=== PATIENT | male | born 1960 | race Caucasian/White ===

== ENCOUNTER → 2017-03-14 | Outpatient (CLI) | payer OTHER ==
[2015-12-02 12:20] VITALS: BP 151/73
[~2017-03-14] MED LIST: ASCO10002 PO; ASPI-482 PO; ASPI-630 PO; CHOL10003 PO; CITA40TA5 PO; CLON2TAB2 PO; DOCU-109 PO; GABA800T2 PO; GLUC1TAB PO; LISD70CA5 PO; MORP30TA PO; MULT-404 PO; OMEG1CAP38 PO; ONDA4VIA4 IV; OXYC1TAB7 PO; OXYC1TAB8 PO; POTA500T5 PO; SAW450CA2 PO; SENN17.2 PO; SENN25TA8 PO; TAMS0.4C2 PO; TOPI200T6 PO; TRAZ100T12 PO
--- NOTE | 2017-03-14 15:00 | KCIC ---
EXAM: Chest, 2 views. HISTORY: Shortness of breath. COMPARISON: None. FINDINGS: Frontal and lateral views of the chest are obtained. There is right infrahilar atelectasis or infiltrate. There is no consolidation, effusion or pneumothorax. The heart is normal in size. IMPRESSION: Right infrahilar atelectasis or infiltrate. Electronically signed by: Kimberlee Varma MD (03/14/2017 2:57 PM) [facility]-[id number]
== END | disposition home or self-care (01) ==
LOC: KCIC 14:29
PROVIDERS: ATTEND Internal Medicine Critical Care Medicine
DX: R06.02 Shortness of breath (principal)
CPT/HCPCS: 71020

== ENCOUNTER → 2017-03-16 | Outpatient (CLI) | payer OTHER ==
[2015-12-02 12:20] VITALS: BP 151/73
--- NOTE | 2017-03-16 13:38 | KCIC ---
PQRS Compliance Statement: One or more of the following individualized dose reduction techniques were utilized for this examination: 1. Automated exposure control 2. Adjustment of the mA and/or kV according to patient size 3. Use of iterative reconstruction technique CT CHEST WO CONTRAST Clinical Indication: Lung nodule. Abnormal chest radiograph. Comparison: Two-view chest, 2 days ago. Technique: Helical CT imaging of the chest is performed without IV contrast. Findings: Suspect bilateral hilar adenopathy, limited evaluation without IV contrast. There is mediastinal adenopathy. For example there is a 2 x 3 cm subcarinal lymph node. There are 1.3 and 1.4 cm right paratracheal lymph nodes. The great vessels are normal caliber. Mild coronary artery disease. Cardiac size normal, trace pericardial fluid. Cannot exclude wall thickening of the distal esophagus. The central airways are patent. There is minimal atelectasis or scarring in the medial right lower lobe. There is no consolidation. Tiny nodule along the left major fissure in the left lower lobe may be an intrapulmonary lymph node. There is a tiny calcified granuloma just lateral. No suspicious pulmonary nodule. No pleural abnormality. There is probable hepatosplenomegaly. Liver and spleen are incompletely imaged. Borderline enlarged gastrohepatic lymph nodes. No acute bone abnormality. Degenerative endplate spurring in the thoracic spine. IMPRESSION: 1. Mediastinal and probable bilateral hilar adenopathy. Borderline-enlarged gastrohepatic lymph nodes. Lymphoproliferative disorder or metastatic disease are in the differential. Recommend CT chest with contrast in 3 months to reevaluate. 2. No lung consolidation. No suspicious pulmonary nodule. 3. There may be wall thickening of the distal esophagus. Considerations include esophagitis, Vásquez's esophagus, or esophageal neoplasm. 4. Probable hepatosplenomegaly. Electronically signed by: Rocael Sinclair MD (03/16/2017 1:35 PM) [id number]
== END | disposition home or self-care (01) ==
LOC: KCIC CT 12:45
PROVIDERS: ATTEND Internal Medicine Critical Care Medicine
CPT/HCPCS: 71250

== ENCOUNTER → 2017-05-07 | Outpatient (CLI) | payer OTHER ==
[2015-12-02 12:20] VITALS: BP 151/73
[~2017-05-07] MED LIST changes: -SAW450CA2 PO; +SAW450CA7 PO
--- NOTE | 2017-05-08 09:43 | SLEEP ---
DATE OF STUDY: 05/07/2017 SLEEP STUDY ATTENDING PHYSICIAN: Dr. Jalen Joshua. The patient is 57 years old who weighs 314 pounds with a BMI of 44. The patient had a history of sleep apnea diagnosed in 2007 and needed another sleep study to requalify for a new machine. During the night study, the patient spent 432 minutes in bed and slept for 334 minutes, with a sleep efficiency of 77%. Sleep latency was 15 minutes with an absent REM sleep. Overall, sleep architecture showed increased stage I and stage II sleep, absent slow wave and absent REM sleep. During the initial diagnostic portion of the study, the patient slept for 125 minutes. During this time, there were 35 obstructive apneas, no mixed or central apneas and 123 hypopneas. The patient's apnea-hypopnea index was 76 per hour. Supine sleep was not seen during the diagnostic portion and REM sleep was not seen either. Review of nocturnal oximetry study revealed a mean oxygen saturation of 92% with the lowest of 79%. 88% of time oxygen saturation remained between 80% and 89%. EKG monitoring revealed normal sinus rhythm. No sustained arrhythmias were observed. Average heart rate was 73 beats per minute. PLMs were not seen. The patient met the criteria for CPAP initiation. The patient could not tolerate the pressure lower than 12 cm water. As a result, the patient was started on 15 cm water and titrated up to 18 cm water. However, the patient did well at 15 cm water. The patient slept for 112 minutes. The patient had supine sleep throughout, but no REM sleep observed. AHI was only 1 per hour and oxygen saturations remained in the mid 80s, with a low saturation of 84%. I would recommend adding 1 liter of oxygen with the CPAP. The patient used small-sized nasal pillows. IMPRESSION: 1. Severe sleep apnea-hypopnea syndrome with an apnea-hypopnea index of 76 per hour. 2. Nocturnal hypoxia secondary to combination of obstructive sleep apnea and suspected obesity hypoventilation syndrome. 3. No clinically significant periodic limb movement in sleep. RECOMMENDATIONS: 1. CPAP at 15 cm water along with 1 liter of supplemental oxygen should be used on a nightly basis. 2. Follow up in 4-6 weeks to assess compliance with CPAP and to document clinical improvement. 3. Weight loss is strongly advised. 4. Avoid [employer] HEAD depressants. 5. Caution regarding driving until symptoms of sleep apnea resolve with the use of CPAP. 6. The patient to use small-sized nasal pillows. TONO OCAMPO MD DR: SHARAN/mariel JOB#: [id number] / [id number]
== END | disposition home or self-care (01) ==
LOC: SLPLAB 18:04
PROVIDERS: ATTEND Internal Medicine Critical Care Medicine
DX: G47.33 Obstructive sleep apnea (adult) (pediatric) (principal)
CPT/HCPCS: 95810

== ENCOUNTER → 2017-07-13 | Outpatient (CLI) | payer OTHER ==
[2017-07-13] MEDS: IOHEXOL 300 MG/ML 100ML VIAL. IV ×2 (10:13)
== END | disposition home or self-care (01) ==
LOC: KCIC CT 09:47
DX: D86.9 Sarcoidosis, unspecified (principal); N62 Hypertrophy of breast; I70.0 Atherosclerosis of aorta; K76.0 Fatty (change of) liver, not elsewhere classified; R06.02 Shortness of breath; R91.8 Other nonspecific abnormal finding of lung field
CPT/HCPCS: 71260; Q9967

== ENCOUNTER → 2018-02-15 | Outpatient (CLI) | payer OTHER ==
[2015-12-02 12:20] VITALS: BP 151/73
[~2018-02-15] MED LIST changes: -CLON2TAB2 PO; +CLON2TAB9 PO; -ONDA4VIA4 IV; +ONDA4VIA7 IV; +TRAZ-86 PO; -TRAZ100T12 PO
--- NOTE | 2018-02-15 17:29 | KCIC ---
MR of the right shoulder Indication: Right shoulder pain, 3 days of hard work, awoke with upper arm bruising. Technique: Standard multiplanar sequences are obtained. Findings: Artifact: Moderate motion degradation. Acromioclavicular joint:Intact. Rotator cuff: * Supraspinatus-infraspinatus tendon: Complete full-thickness rupture with 4 cm retraction. * Subscapularis tendon: Tendinosis with partial tear * Muscle bulk: Moderate to severe atrophy * Subacromial subdeltoid bursa: Small effusion. Fluid: Trace glenohumeral effusion. Glenohumeral cartilage: No acute defect or advanced DJD. Labrum: No acute detachment or separation. Biceps tendon: Not seen in the joint or bicipital groove. Retracted tendon may be present in the upper arm just below the bicipital groove, compatible with a retracted rupture. Bones: No lesion or acute fracture. Soft tissue: No acute findings. Impression: 1. Large rotator cuff tear. Complete retracted rupture of supraspinatus and infraspinatus tendon, partial subscapularis tendon tear, moderate to severe muscle atrophy. 2. Suspect proximal biceps tendon rupture with retraction just below the bicipital groove. Electronically signed by: Justo Sweet MD (02/15/2018 5:26 PM) [facility]
== END | disposition home or self-care (01) ==
LOC: KCIC MRI 12:09
PROVIDERS: ATTEND Orthopaedic Surgery
DX: M75.101 Unspecified rotator cuff tear or rupture of right shoulder, not specified as traumatic (principal); M62.511 Muscle wasting and atrophy, not elsewhere classified, right shoulder; M25.411 Effusion, right shoulder; G47.33 Obstructive sleep apnea (adult) (pediatric); Z96.653 Presence of artificial knee joint, bilateral; Z87.442 Personal history of urinary calculi; Z87.891 Personal history of nicotine dependence; Z90.49 Acquired absence of other specified parts of digestive tract; Z91.011 Allergy to milk products
CPT/HCPCS: 73221

== ENCOUNTER → 2018-04-04 | Outpatient (CLI) | payer OTHER ==
[2015-12-02 12:20] VITALS: BP 151/73
== END | disposition home or self-care (01) ==
LOC: ECHO 09:33
PROVIDERS: ATTEND Internal Medicine Cardiovascular Disease
DX: I25.10 Atherosclerotic heart disease of native coronary artery without angina pectoris (principal)
CPT/HCPCS: 93306

== ENCOUNTER → 2018-04-19 | Outpatient (CLI) | payer OTHER ==
[2015-12-02 12:20] VITALS: BP 151/73
[~2018-04-19] MED LIST changes: +CONTRAST GIVEN. MC PRN; +IOHEXOL 300 MG/ML 100ML VIAL. IV ONE
--- NOTE | 2018-04-19 10:43 | RAD ---
CT of the chest with contrast, 04/19/2018: HISTORY: Sarcoidosis, shortness of breath Multidetector CT imaging was performed following an IV bolus injection of iodinated contrast material. Comparison is made to a study from 07/13/2017. The thoracic aorta is unremarkable. Mildly enlarged mediastinal lymph nodes are again noted. Some of the mediastinal nodes have decreased slightly in size. The largest node lies in the subcarinal region and currently demonstrates a short axis dimension of 2.0 cm compared to a measurement of 2.1 cm on the previous study. A precarinal lymph node which demonstrated a short axis measurement of 1.5 cm on the previous study now measures 1.3 cm. Mildly prominent hilar lymph nodes are similar to on the previous study. No new mediastinal abnormality is detected. There are mild streaky peripheral opacities posteriorly in the lower chest suggesting atelectasis and/or scarring. Some of these opacities have progressed slightly. A 4 mm. perifissural nodule in the left lower chest is unchanged. No dense pulmonary consolidation or mass is evident. There is no evidence of pleural fluid. The liver and spleen were not completely included on these chest images, however, both appear enlarged. IMPRESSION: 1. Mild mediastinal and hilar adenopathy have improved slightly since 07/13/2017. 2. Mild peripheral dependent atelectasis and/or scarring in the lower lobes has worsened slightly. PQRS Compliance Statement: One or more of the following individualized dose reduction techniques were utilized for this examination: 1. Automated exposure control 2. Adjustment of the mA and/or kV according to patient size 3. Use of iterative reconstruction technique Electronically signed by: Guru Sevilla MD (04/19/2018 10:39 AM) [facility]
== END | disposition home or self-care (01) ==
LOC: CT 08:12
PROVIDERS: ATTEND Internal Medicine Critical Care Medicine
DX: J98.11 Atelectasis (principal); R59.1 Generalized enlarged lymph nodes
CPT/HCPCS: 71260; Q9967

== ENCOUNTER → 2019-02-18 | Outpatient (CLI) | payer OTHER ==
[2015-12-02 12:20] VITALS: BP 151/73
[~2019-02-18] MED LIST changes: -CONTRAST GIVEN. MC PRN; -GABA800T2 PO; +GABA800T5 PO; -IOHEXOL 300 MG/ML 100ML VIAL. IV ONE; +SENN25TA10 PO; -SENN25TA8 PO
--- NOTE | 2019-02-18 14:42 | CARD ---
MR#: [id number] Date of Study: 02/18/2019 Ordering Physician: FENG SORIA, Referring Physician: FENG SORIA, Tech: Brooke Garcia APPROVED REPORT EXAM: Two-dimensional and M-mode echocardiogram with Doppler and color Doppler. Other Information Quality : AverageHR: 88bpm INDICATION Cardiomyopathy RISK FACTORS Previous smoker 2D DIMENSIONS RVDd4.3 (2.9-3.5cm)Left Atrium(2D)4.0 (1.6-4.0cm) IVSd1.2 (0.7-1.1cm)Aortic Root(2D)3.3 (2.0-3.7cm) LVDd5.8 (3.9-5.9cm)LVOT Diameter2.3 (1.8-2.4cm) PWd1.1 (0.7-1.1cm)LVDs3.3 (2.5-4.0cm) FS (%) 42.8 %SV122.8 ml LVEF(%)73.1 (>50%) Aortic Valve AoV Peak Bill.191.1cm/sAoV VTI34.3cm AO Peak GR.14.6mmHgLVOT Peak Bill.105.1cm/s LVOT VTI 21.99cmAO Mean GR.8mmHg PAUL (VMAX)1.62vb2NSJ (VTI)2.77cm2 Mitral Valve MV E Ycyjtlut76.4cm/sMV DECEL OLIM753eo MV A Hyyhkvze69.5cm/sMV IZK82cf E/A Ratio1.0MVA (PHT)3.76cm2 TDI E/Lateral E'10.8E/Medial E'11.5 Pulmonary Valve PV Peak Mnknmxhk234.3cm/sPV Peak Grad.6mmHg Tricuspid Valve TR P. Ogfklvvv803ad/sRAP QTNPWDJM3gyKo TR Peak Gr.20qvUhYMEW54snZz Pulmonary Vein S1 Bwiblqtc49.8cm/sD2 Mqgekint96.6cm/s PVa fxohggaa961ikcv LEFT VENTRICLE The left ventricle is normal size. There is mild concentric left ventricular hypertrophy. The left ve ntricular systolic function is low normal. The Ejection Fraction is 45-50%. There is slight global hy pokinesis of the left ventricle. Transmitral Doppler flow pattern is Grade II-pseudonormal filling dy namics. RIGHT VENTRICLE The right ventricle is borderline dilated. There is normal right ventricular wall thickness. The righ t ventricular systolic function is normal. ATRIA The left atrium size is normal. The right atrium is borderline dilated. The interatrial septum is int act with no evidence for an atrial septal defect or patent foramen ovale as noted on 2-D or Doppler i maging. AORTIC VALVE The aortic valve is thickened but opens well. Doppler and Color Flow revealed trace aortic regurgitat ion. There is no significant aortic valvular stenosis. MITRAL VALVE The mitral valve is normal in structure and function. There is no evidence of mitral valve prolapse. There is no mitral valve stenosis. Doppler and Color-flow revealed trace mitral regurgitation. TRICUSPID VALVE The tricuspid valve is normal in structure and function. Doppler and Color Flow revealed trace tricus pid regurgitation with an estimated PAP of 19 mmHg. There is no tricuspid valve prolapse or vegetatio n. There is no tricuspid valve stenosis. PULMONIC VALVE The pulmonic valve is not well visualized. Doppler and Color Flow revealed trace pulmonic valvular re gurgitation. There is no pulmonic valvular stenosis. GREAT VESSELS The aortic root is normal in size. The IVC is normal in size and collapses >50% with inspiration. PERICARDIAL EFFUSION There is no evidence of significant pericardial effusion. Critical Notification Critical Value: No <Conclusion> The left ventricular systolic function is low normal. The Ejection Fraction is 45-50%. There is slight global hypokinesis of the left ventricle. Signed by : Feng Soria, Electronically Approved : 02/18/2019 14:41:46
== END | disposition home or self-care (01) ==
LOC: ECHO 12:47
PROVIDERS: ATTEND Internal Medicine Cardiovascular Disease
DX: I42.9 Cardiomyopathy, unspecified (principal)
CPT/HCPCS: 93306

== ENCOUNTER → 2019-04-04 | Outpatient (CLI) | payer OTHER, MEDICARE ==
[2015-12-02 12:20] VITALS: BP 151/73
--- NOTE | 2019-04-04 14:00 | KCIC ---
CT CHEST WO CONTRAST Indication: Sarcoidosis Technique: Noncontrast CT imaging was performed of the chest, multiplanar reconstruction images submitted. One or more of the following individualized dose reduction techniques were utilized for this examination: 1. Automated exposure control 2. Adjustment of the mA and/or kV according to patient size 3. Use of iterative reconstruction technique. Comparison: April 19, 2018 Findings: Small 3 mm left lower lobe pulmonary nodule image 39 series 2 is unchanged, adjacent smaller nodule just laterally also stable. There is no new pulmonary nodularity, pleural pericardial fluid, pneumothorax, infiltrate. There is some coronary calcification. Right subcarinal node about 1.7 cm short axis dimension is similar. Node anterior to the right mainstem bronchus about 1.2 cm short axis dimension is unchanged. There are some other smaller mediastinal nodes which are similar. No new significant lymphadenopathy is identified. There is hepatosplenomegaly, not fully included. There is right shoulder arthroplasty. IMPRESSION: 1. Mediastinal lymphadenopathy is stable, also stable small left lower lobe pulmonary nodules. There is no new suspicious pulmonary nodularity. 2. There is again coronary calcification. 3. There is again hepatosplenomegaly, not fully evaluated. Electronically signed by: Max Gomez MD (04/04/2019 1:57 PM) [facility]-KCIC1
== END | disposition home or self-care (01) ==
LOC: KCIC CT 08:50
PROVIDERS: ATTEND Internal Medicine Critical Care Medicine
DX: R91.8 Other nonspecific abnormal finding of lung field (principal); R59.0 Localized enlarged lymph nodes; R16.2 Hepatomegaly with splenomegaly, not elsewhere classified; I25.10 Atherosclerotic heart disease of native coronary artery without angina pectoris; D86.9 Sarcoidosis, unspecified; I10 Essential (primary) hypertension; F17.200 Nicotine dependence, unspecified, uncomplicated
CPT/HCPCS: 71250

== ENCOUNTER → 2019-12-25 | Outpatient (CLI) | payer MEDICARE ==
[2019-11-14 15:00] VITALS: BP 136/79
[~2019-12-25] MED LIST changes: +ASCO100019 PO; -ASCO10002 PO; +BARIUM SULFATE 40% (APPLE) 148 GM PWD. PO ONE; +TRAZ-123 PO; -TRAZ-86 PO
--- NOTE | 2019-12-25 17:35 | RAD ---
PROCEDURE: VIDEO SWALLOW STUDY CLINICAL INDICATION / HISTORY: Reason: DYSPHAGIA, 3.2 MIN FLUORO TIME / Spl. Instructions: BARIUM ORDERED / History: . TECHNIQUE: Real-time fluoroscopic imaging examination was performed in conjunction with speech therapy. The patient was administered barium labeled thin liquids, honey, pudding, and solid consistency compounds. FLUOROSCOPY TIME: 3.2 minutes. Number of Images: 0 COMPARISON: Chest x-ray 11/09/2019 FINDINGS: The patient exhibited normal oral control. There is minimal spillage of ingested material into the pharynx . Minimal delayed swallow initiation. Small amount of residual post swallow in the valleculae and piriform sinuses. There was silent aspiration with thin liquids identified as well as laryngeal penetration with thin and nectar thick consistencies, including deep laryngeal penetration. IMPRESSION: Dysphagia of the pharyngeal phase. Silent aspiration with thin liquids. Please refer to speech pathology notes for complete details and recommendations. Electronically signed by: Sarah Nair MD (12/25/2019 5:32 PM) [id number]
== END | disposition home or self-care (01) ==
LOC: RAD 12:54
PROVIDERS: ATTEND Family Medicine
DX: R13.13 Dysphagia, pharyngeal phase (principal)
CPT/HCPCS: 74230; 92526-GN; 92611-GN

== ENCOUNTER → 2020-01-21 | Outpatient (CLI) | payer MEDICARE ==
[2019-11-14 15:00] VITALS: BP 136/79
[~2020-01-21] MED LIST changes: -BARIUM SULFATE 40% (APPLE) 148 GM PWD. PO ONE; +GABA600T7 PO; +HYDR-2769 PO; +LOSA-73 PO; +MELO15TA23 PO; +METO-239 PO
--- NOTE | 2020-01-21 15:33 | KCIC ---
EXAMINATION: MRI LEFT SHOULDER WITHOUT IV CONTRAST CLINICAL HISTORY: Left shoulder pain, chronic. Impingement syndrome TECHNIQUE: Multiplanar multisequential images obtained through the shoulder without intravenous contrast. COMPARISON: Left shoulder radiographs 01/15/2020 FINDINGS: TENDONS: - Supraspinatus: Full-thickness full width tear and retraction to the glenohumeral joint. - Infraspinatus: Full-thickness full width tear and retraction to the glenohumeral joint. - Subscapularis: Moderate to marked tendinosis with articular sided fraying in the superior fibers. - Teres Minor: Intact. - Biceps Tendon: Near-complete tear with a few thin fibers potentially remaining intact. MUSCLES: Moderate to marked atrophy and mild fatty replacement of the supraspinatus and infraspinatus muscles. LABRUM: Circumferential labral degeneration without discrete tear. GLENOHUMERAL JOINT: - Joint Fluid: Small to moderate joint effusion with mild synovitis. 5 mm posterior joint body. - Cartilage: Moderate areas of high grade partial-thickness chondral loss in the humeral head. -Other: Superior subluxation of the humeral head relative to the glenoid. ACROMIOCLAVICULAR JOINT: Mild degenerative changes. BONES/MARROW: No evidence of acute fracture or suspicious marrow replacing process. OTHER: No other significant abnormality identified. IMPRESSION: Chronic full-thickness supraspinatus and infraspinatus tendon tears with retraction and muscle atrophy. Essentially complete biceps tendon tear. Glenohumeral degenerative changes with small joint body as described. Electronically signed by: John Paul Disla DO (01/21/2020 3:30 PM) [id number]
== END | disposition home or self-care (01) ==
LOC: KCIC MRI 13:54
PROVIDERS: ATTEND Orthopaedic Surgery
DX: S46.912A Strain of unspecified muscle, fascia and tendon at shoulder and upper arm level, left arm, initial encounter (principal); M19.012 Primary osteoarthritis, left shoulder; M25.412 Effusion, left shoulder; M62.512 Muscle wasting and atrophy, not elsewhere classified, left shoulder; X58.XXXA Exposure to other specified factors, initial encounter; Y93.89 Activity, other specified; Y92.89 Other specified places as the place of occurrence of the external cause; Y99.8 Other external cause status; M65.812 Other synovitis and tenosynovitis, left shoulder
CPT/HCPCS: 73221

== ENCOUNTER → 2020-02-12 | Outpatient (CLI) | payer MEDICARE ==
[2019-11-14 15:00] VITALS: BP 136/79
[2020-02-12 10:48] LABS: BASO % 0 % (0-3); EOS % 1 % (0-3); HEMATOCRIT 40.3 % (39.0-53.0); HEMOGLOBIN 13.8 g/dL (13.0-17.5); LYMPH # 1.6 x10^3/uL (1.0-4.8); LYMPH % 37 % (24-48); MEAN CORPUSCULAR HEMOGLOBIN 30 pg (25-35); MEAN CORPUSCULAR HGB CONC 34 g/dL (31-37); MEAN CORPUSCULAR VOLUME 87 fL (79-100); MONO # 0.4 x10^3/uL (0.0-1.1); MONO % 8 % (0-9); NEUT # 2.4 x10^3/uL (1.8-7.7); NEUT % 54 % (31-73); PLATELET COUNT 103 x10^3/uL (140-400); RED BLOOD COUNT 4.61 x10^6/uL (4.30-5.70); RED CELL DISTRIBUTION WIDTH 13.2 % (11.5-14.5); WHITE BLOOD COUNT 4.5 x10^3/uL (4.0-11.0)
[2020-02-12 10:50] LABS: ALBUMIN 3.7 g/dL (3.4-5.0); C-REACTIVE PROTEIN 4.2 mg/L (0-3.3); CALCIUM 9.2 mg/dL (8.5-10.1); CREATININE 1.2 mg/dL (0.7-1.3); POTASSIUM 4.5 mmol/L (3.5-5.1)
[2020-02-12 11:04] LABS: PROTHROMBIN TIME PATIENT 13.7 SEC (11.7-14.0)
--- NOTE | 2020-02-12 13:58 | RAD ---
CHEST PA LATERAL INDICATION: PRE-OP EVAL FOR KNEE COMPARISON STUDY: None. FINDINGS: Lungs: Normal lung volume. No pulmonary mass or consolidation. The tracheobronchial tree and hilar structures are normal. Pleura: No pleural effusion or pneumothorax. Heart and Mediastinum: The cardiomediastinal silhouette is normal. Mild tortuosity of the thoracic aorta. Bones and Soft Tissues: Degenerative changes of the spine. IMPRESSION: No acute cardiopulmonary process. Electronically signed by: Max Vee MD (02/12/2020 1:55 PM) [id number]
== END | disposition home or self-care (01) ==
LOC: SURGPAT 10:12
PROVIDERS: ATTEND Orthopaedic Surgery
DX: Z01.812 Encounter for preprocedural laboratory examination (principal); T84.84XA Pain due to internal orthopedic prosthetic devices, implants and grafts, initial encounter; Z96.651 Presence of right artificial knee joint
CPT/HCPCS: 36415; 71046; 80048; 82040; 82306; 83036; 85025; 85610; 85730; 86140; 87641

== ENCOUNTER → 2020-02-27 | Outpatient (CLI) | payer MEDICARE ==
[2019-11-14 15:00] VITALS: BP 136/79
== END ==
LOC: LAB 12:23
PROVIDERS: ATTEND Orthopaedic Surgery
DX: Z01.812 Encounter for preprocedural laboratory examination (principal); Z20.828 Contact with and (suspected) exposure to other viral communicable diseases; T84.84XA Pain due to internal orthopedic prosthetic devices, implants and grafts, initial encounter; Z96.651 Presence of right artificial knee joint
CPT/HCPCS: U0003-CS

== ENCOUNTER → 2020-04-22 | Outpatient (CLI) | payer MEDICARE ==
[2020-03-05 15:21] VITALS: BP 175/69
[2020-04-22 14:16] LABS: BASO % 1 % (0-3); EOS # 0.1 x10^3/uL (0.0-0.7); EOS % 2 % (0-3); HEMATOCRIT 40.4 % (39.0-53.0); HEMOGLOBIN 13.4 g/dL (13.0-17.5); LYMPH % 40 % (24-48); MEAN CORPUSCULAR HEMOGLOBIN 27 pg (25-35); MEAN CORPUSCULAR HGB CONC 33 g/dL (31-37); MEAN CORPUSCULAR VOLUME 82 fL (79-100); MONO # 0.5 x10^3/uL (0.0-1.1); MONO % 10 % (0-9); NEUT # 2.3 x10^3/uL (1.8-7.7); NEUT % 48 % (31-73); PLATELET COUNT 114 x10^3/uL (140-400); RED BLOOD COUNT 4.94 x10^6/uL (4.30-5.70); RED CELL DISTRIBUTION WIDTH 14.2 % (11.5-14.5); WHITE BLOOD COUNT 4.9 x10^3/uL (4.0-11.0)
[2020-04-22 14:27] LABS: PROTHROMBIN TIME PATIENT 14.9 SEC (11.7-14.0)
[2020-04-22 14:35] LABS: ALBUMIN 4.1 g/dL (3.4-5.0); CALCIUM 9.9 mg/dL (8.5-10.1); CREATININE 0.9 mg/dL (0.7-1.3); GFR 86.4; POTASSIUM 4.3 mmol/L (3.5-5.1)
[2020-04-23 02:17] LABS: HEMOGLOBIN A1C 6.4 % (4.8-5.6)
== END ==
LOC: SURGPAT 12:43
PROVIDERS: ATTEND Orthopaedic Surgery
DX: Z01.812 Encounter for preprocedural laboratory examination (principal); M12.812 Other specific arthropathies, not elsewhere classified, left shoulder; Z96.612 Presence of left artificial shoulder joint; Z20.828 Contact with and (suspected) exposure to other viral communicable diseases
CPT/HCPCS: 80048; 82040; 82306; 83036; 85025; 85610; 85730; 86140; 87641; U0003

== ENCOUNTER → 2020-07-20 | Outpatient (CLI) | payer MEDICARE ==
[2020-04-29 14:30] VITALS: BP 110/62
[~2020-07-20] MED LIST changes: +CHLO1CAP56 PO; +OXYC1TAB22 PO; +PANT40TA77 PO
[2020-07-20 10:51] LABS: BASO % 0 % (0-3); EOS % 1 % (0-3); HEMATOCRIT 36.5 % (39.0-53.0); HEMOGLOBIN 11.5 g/dL (13.0-17.5); LYMPH % 28 % (24-48); MEAN CORPUSCULAR HEMOGLOBIN 25 pg (25-35); MEAN CORPUSCULAR HGB CONC 32 g/dL (31-37); MEAN CORPUSCULAR VOLUME 78 fL (79-100); MONO # 0.3 x10^3/uL (0.0-1.1); MONO % 10 % (0-9); NEUT # 2.1 x10^3/uL (1.8-7.7); NEUT % 61 % (31-73); PLATELET COUNT 82 x10^3/uL (140-400); RED CELL DISTRIBUTION WIDTH 17.6 % (11.5-14.5); WHITE BLOOD COUNT 3.4 x10^3/uL (4.0-11.0)
[2020-07-20 11:00] LABS: PROTHROMBIN TIME PATIENT 14.4 SEC (11.7-14.0)
[2020-07-20 11:09] LABS: ALBUMIN 3.7 g/dL (3.4-5.0); C-REACTIVE PROTEIN 15.2 mg/L (0-3.3); CALCIUM 9.2 mg/dL (8.5-10.1); CREATININE 0.9 mg/dL (0.7-1.3); GFR 86.4; POTASSIUM 4.4 mmol/L (3.5-5.1)
== END ==
LOC: SURGPAT 10:04
PROVIDERS: ATTEND Orthopaedic Surgery
DX: Z01.812 Encounter for preprocedural laboratory examination (principal); T84.098A Other mechanical complication of other internal joint prosthesis, initial encounter; Z20.822 Contact with and (suspected) exposure to COVID-19
CPT/HCPCS: 80048; 82040; 85025; 85610; 85730; 86140; 87641; U0003

== ENCOUNTER 2020-07-23 06:04 | Day surgery (SDC) | payer MEDICARE ==
[~2020-07-23] VITALS: Ht 177.8 cm; Wt 136.5 kg
[~2020-07-23 06:04] MED LIST changes: +ACETAMINOPHEN 500 MG TABLET PO ONE; +HYDROmorphone 2 MG/ML VIAL IVP PRN; +IV RINGERS,LACTATED 1000ML 1,000 ML IV SCH; +MORPHINE SULFATE 2 MG/ML VIAL. IVP PRN; +PROCHLORPERAZINE 10 MG/2 ML VIAL. IVP PRN; +TRANEXAMIC ACID in NS IVPB 50 ML INJ ONE; +ceFAZolin SODIUM 3 GM in IV DEXTROSE 5% 100ML 100 ML IV PRN; +fentaNYL PF VIAL 100 MCG/2 ML VIAL IVP PRN
[2020-07-23] MEDS ORDERED: LIDOCAINE 2% PF 5 ML VIAL. ONE ×2 (06:47→07:11)
[2020-07-23] MEDS ORDERED: PROPOFOL 10 MG/ML (20ML) VIAL. IV ONE (06:47)
[2020-07-23] MEDS ORDERED: fentaNYL PF VIAL 100 MCG/2 ML VIAL ONE (06:48)
[2020-07-23] MEDS ORDERED: ROCURONIUM 50 MG/5 ML VIAL. ONE (06:48)
[2020-07-23] MEDS ORDERED: MIDAZOLAM HCL/PF 2 MG/2 ML VIAL. ONE (06:48)
[2020-07-23] MEDS: INSULIN LISPRO 100 UNIT/ML 3ML VIAL for OP,RR ONLY. SQ PRN ×3 (07:06→09:59)
[2020-07-23] MEDS ORDERED: VANCOMYCIN 1 GM VIAL. ONE (07:06)
[2020-07-23] MEDS ORDERED: ROPIVacaine 0.5% PF 20 ML VIAL. ONE (07:11)
[2020-07-23] MEDS ORDERED: DEXAMETHASONE SOD PHOS 4 MG/ML VIAL ONE (07:11)
[2020-07-23 07:29] LABS: BASO % 0 % (0-3); EOS % 1 % (0-3); HEMATOCRIT 36.2 % (39.0-53.0); HEMOGLOBIN 11.3 g/dL (13.0-17.5); LYMPH # 1.1 x10^3/uL (1.0-4.8); LYMPH % 33 % (24-48); MEAN CORPUSCULAR HEMOGLOBIN 24 pg (25-35); MEAN CORPUSCULAR HGB CONC 31 g/dL (31-37); MEAN CORPUSCULAR VOLUME 78 fL (79-100); MONO # 0.4 x10^3/uL (0.0-1.1); MONO % 11 % (0-9); NEUT # 1.8 x10^3/uL (1.8-7.7); NEUT % 55 % (31-73); PLATELET COUNT 82 x10^3/uL (140-400); RED BLOOD COUNT 4.65 x10^6/uL (4.30-5.70); RED CELL DISTRIBUTION WIDTH 18.1 % (11.5-14.5); WHITE BLOOD COUNT 3.2 x10^3/uL (4.0-11.0)
[2020-07-23] MEDS ORDERED: TRANEXAMIC ACID in NS IVPB 100 ML ONE (07:43)
[2020-07-23] MEDS ORDERED: SUCCINYLCHOLINE 200 MG/10 ML VIAL. ONE (07:48)
--- NOTE | 2020-07-23 08:03 | DISCH ---
DISCHARGE INSTRUCTIONS Condition on Discharge Condition on Discharge: Stable Activity After Discharge Activity Instructions for Disc: Other, see below Bathing Instructions: Shower-keep dressing dry, No Tub Bath until see Lifting Instructions after Dis: No heavy lifting, No pulling or pushing, Do not lift >10 pounds Exercise Instruction after Dis: Exercise per therapy Driving Instructions after Dis: Do not drive today Weight Bearing Status after Di: No restrictions Diet after Discharge Diet after Discharge: Regular Additional Diet Restrictions: Drink 8-10 12oz glasses of water / day Liquid Texture: Thin Liquid Wound Incision Care Wound/Incision Care: Ice to area for comfort, Do not change dressing Wound Care Equipment: Dressings Community/Resources/Services Services at Discharge: PT EVALUATE & TREAT (May resume PT on existing protocol, avoid reaching around the back for 2 months postop) Contacting the after DC Call your doctor for: Concerns you may have Follow-Up Follow up with: Dr. Gillespie 10 days Treatment/Equipment after DC Adaptive Equipment Issued: None LILIYA GILLESPIE MD Jul 23, 2020 08:03
[2020-07-23] MEDS ORDERED: PHENYLEPHRINE in 0.9% NACL PF 1 MG/10 ML SYRINGE. IV ONE (08:16)
[2020-07-23] MEDS ORDERED: GLYCOPYRROLATE 1 MG/5 ML VIAL. ONE (08:40)
[2020-07-23] MEDS ORDERED: ONDANSETRON PF 4 MG/2 ML VIAL. ONE (08:40)
[2020-07-23] MEDS ORDERED: NEOSTIGMINE METHYLSULFATE 5 MG/5 ML SYRINGE. ONE (08:40)
[2020-07-23] MEDS ORDERED: SEVOFLURANE > 120 MINUTES. IH ONE (09:43)
[2020-07-23] MEDS ORDERED: INSULIN LISPRO 100 UNIT/ML 3ML VIAL for OP,RR ONLY. SQ ONE ×3 (10:00)
[2020-07-23] MEDS ORDERED: oxyCODONE/APAP 10/325 1 TAB TABLET PO ONE (10:45)
[2020-07-23 11:10] VITALS: BP 142/86
--- NOTE | 2020-07-23 20:31 | PDOC4 ---
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 plus scalene block Estimated blood loss: 150 mL Complications: None Operative indications: Please see my preoperative history and physical for detailed operative indications and note that patient had a reverse shoulder arthroplasty that was doing very well until just before a recent clinic visit when he had had a history of a couple of falls on the other shoulder and noted increased pain and clunking in the left shoulder. On evaluation in the clinic he was noted to have dissociation and displacement of the polyethylene wear surface of the reverse shoulder arthroplasty and I had gone over with him the necessity of exploration of this area and revision along with the risks benefits postoperative course including the possibility of infection instability premature wear or loosening nerve or blood vessel damage medical or other anesthetic complications among others all his questions were answered he wishes to proceed with surgical evaluation and treatment Operative text: Patient was identified procedure verified patient placed in the supine position on the operating table. After adequate amounts of general anesthesia plus a pre-existing scalene block were obtained he was placed in the Tmax head rest and beachchair position with the spider arm denton and the left arm prepped and draped in standard sterile fashion. After timeout was performed patient procedure identified and verified a deltopectoral incision was made and the distal insertion of the deltoid was bluntly peeled off the bone at its periosteal insertion and subscapularis was released and tagged. The loose polyethylene component was retrieved from the joint and both the trabecular met al stem and the glenosphere were noted to be solidly placed with no evidence of any loosening and no significant scuffing on the glenosphere component. Trial fitting was carried out with a size 6 standard polyethylene trial component which gave excellent stability and allowed him adequate motion. I overall judged however that a size 6 with a retentive polyethylene component provided a better overall fit. There was no evidence of any impingement or indications of any hardware malalignment that would result in concerns for future instability. After thorough irrigation carried out normal saline solution bleeding points controlled by electrocautery, a 40 mm diameter +6 mm retentive polyethylene spacer was impacted into the humeral stem and was noted to be solidly fixated. The shoulder was reduced and noted to have excellent range of motion and no instability or impingement present. Joint was irrigated with dilute Betadine solution and further with normal saline solution with pulse lavage. Subscapularis was repaired with max braid suture 1 g vancomycin was placed in the joint subcutaneous closure in a layered fashion with buried Vicryl suture skin closure with subcuticular Monocryl and a gelacio dressing was placed. Patient was returned to recovery room in stable condition having tolerated procedure well. Philip abraham was present for the procedure and assisted in patient positioning prepping draping retraction closure dressings LILIYA MOROCHO MD Jul 23, 2020 20:31
== END 2020-07-23 13:30 | disposition home or self-care (01) ==
LOC: SURG 06:04
PROVIDERS: ATTEND Orthopaedic Surgery
DX: Z96.612 Presence of left artificial shoulder joint (principal); I10 Essential (primary) hypertension; K21.9 Gastro-esophageal reflux disease without esophagitis; G47.30 Sleep apnea, unspecified; E66.9 Obesity, unspecified; M19.90 Unspecified osteoarthritis, unspecified site; F41.9 Anxiety disorder, unspecified; F32.9 Major depressive disorder, single episode, unspecified; E11.9 Type 2 diabetes mellitus without complications; F17.210 Nicotine dependence, cigarettes, uncomplicated; Z85.828 Personal history of other malignant neoplasm of skin; Z79.899 Other long term (current) drug therapy; Z98.890 Other specified postprocedural states; Z72.89 Other problems related to lifestyle
CPT/HCPCS: 23472; 36415; 82962; 85025; 86850; 86900; 86901; A4565; A4928; A4930; A6223; A6253; A6402; A6550; C1776; J0330; J1100; J1815; J2250; J2370; J2405; J2704; J2710; J2795; J3010; J3370; J3490; A4322

== ENCOUNTER → 2020-08-31 | Outpatient (CLI) | payer MEDICARE ==
[~2020-08-31] MED LIST changes: -ACETAMINOPHEN 500 MG TABLET PO ONE; -HYDROmorphone 2 MG/ML VIAL IVP PRN; -IV RINGERS,LACTATED 1000ML 1,000 ML IV SCH; -MORPHINE SULFATE 2 MG/ML VIAL. IVP PRN; -PROCHLORPERAZINE 10 MG/2 ML VIAL. IVP PRN; -TRANEXAMIC ACID in NS IVPB 50 ML INJ ONE; -ceFAZolin SODIUM 3 GM in IV DEXTROSE 5% 100ML 100 ML IV PRN; -fentaNYL PF VIAL 100 MCG/2 ML VIAL IVP PRN
--- NOTE | 2020-09-01 09:38 | CARD ---
MR#: [id number] Date of Study: 08/31/2020 Ordering Physician: FENG POWERS, Referring Physician: FENG POWERS, Tech: Courtney Jose, [facility] APPROVED REPORT EXAM: Two-dimensional and M-mode echocardiogram with Doppler and color Doppler. Other Information Quality : AverageHR: 74bpm Technically limited study due to body habitus. INDICATION Cardiomyopathy Non Ischemic Cardiomyopathy RISK FACTORS Hypertension 2D DIMENSIONS RVDd4.3 (2.9-3.5cm)Left Atrium(2D)4.3 (1.6-4.0cm) IVSd1.3 (0.7-1.1cm)Aortic Root(2D)3.5 (2.0-3.7cm) LVDd6.2 (3.9-5.9cm)LVOT Diameter2.2 (1.8-2.4cm) PWd1.4 (0.7-1.1cm)LVDs3.7 (2.5-4.0cm) FS (%) 41.3 %SV139.2 ml LVEF(%)60.2 (>50%) Aortic Valve AoV Peak Bill.208.0cm/sAoV VTI38.1cm AO Peak GR.17.3mmHgLVOT Peak Bill.92.7cm/s LVOT VTI 19.58cmAO Mean GR.10mmHg PAUL (VMAX)1.95ly1PCG (VTI)1.93cm2 Mitral Valve MV E Pyxsrghn20.4cm/sMV DECEL [id number] MV A Krbzpxiu02.5cm/sMV ZJK46xh E/A Ratio0.7MVA (PHT)2.92cm2 TDI E/Lateral E'7.7E/Medial E'8.4 Pulmonary Valve PV Peak Oyvcvlox465.4cm/sPV Peak Grad.4mmHg Tricuspid Valve TR P. Qhkwlpzx110mi/sTR Peak Gr.18mmHg Pulmonary Vein S1 Kloryyyo97.1cm/sD2 Pamltmqn36.2cm/s PVa [id number] LEFT VENTRICLE The Left Ventricle is mildly dilated. There is moderate concentric left ventricular hypertrophy. The left ventricular systolic function is mildly diminished. The Ejection Fraction is 45-50%. There is no rmal LV segmental wall motion. Transmitral Doppler flow pattern is Grade I-abnormal relaxation patter n. RIGHT VENTRICLE The right ventricle is borderline dilated. There is normal right ventricular wall thickness. The righ t ventricular systolic function is normal. ATRIA The left atrium is borderline dilated. The right atrium is borderline dilated. The interatrial septum is intact with no evidence for an atrial septal defect or patent foramen ovale as noted on 2-D or Do ppler imaging. AORTIC VALVE The aortic valve is thickened but opens well. Doppler and Color Flow revealed no significant aortic r egurgitation. There is no significant aortic valvular stenosis. Calculated aortic valve area is 1.78 cm2 with maximum pressure gradient of 20 mmHg and mean pressure gradient of 11 mmHg. MITRAL VALVE The mitral valve is normal in structure and function. There is no evidence of mitral valve prolapse. There is no mitral valve stenosis. Doppler and Color-flow revealed trace mitral regurgitation. TRICUSPID VALVE The tricuspid valve is normal in structure and function. Doppler and Color Flow revealed trace tricus pid regurgitation with an estimated PAP of 23 mmHg. There is no tricuspid valve stenosis. PULMONIC VALVE The pulmonic valve is not well visualized. Doppler and Color Flow revealed trace pulmonic valvular re gurgitation. GREAT VESSELS The aortic root is normal in size. The ascending aorta is normal in size. The IVC is normal in size a nd collapses >50% with inspiration. PERICARDIAL EFFUSION There is no evidence of significant pericardial effusion. Critical Notification Critical Value: No <Conclusion> The left ventricular systolic function is mildly diminished. The Ejection Fraction is 45-50%. Transmitral Doppler flow pattern is Grade I-abnormal relaxation pattern. Trace mitral regurgitation. Trace tricuspid regurgitation with an estimated PAP of 23 mmHg. There is no evidence of significant pericardial effusion. Signed by : Tha Matson, Electronically Approved : 09/01/2020 09:38:13
== END ==
LOC: ECHO 12:56
PROVIDERS: ATTEND Internal Medicine Cardiovascular Disease
DX: I51.7 Cardiomegaly (principal); I42.9 Cardiomyopathy, unspecified
CPT/HCPCS: 93306

== ENCOUNTER → 2020-09-27 | Outpatient (CLI) | payer MEDICARE ==
[~2020-09-27] MED LIST changes: +ASCO500C PO; +BUPIVACAINE MPF 0.25% 10 ML VIAL. ONE; +CALC-71 PO; +IOHEXOL 180 MG/ML 10 ML VIAL. ONE; +OMEG-117 PO; +SAW1CAPS8 PO; +methylPREDNISolone ACETATE 80 MG/ML VIAL. ONE
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
--- NOTE | 2020-09-27 13:04 | PDOC4 ---
PROCEDURE Procedure Patient was consented for bilateral genicular nerveknee blocks. Risk were discussed including but not limited to bleeding infection possibility of intravascular injection sequelae spread to local anesthetic numbness side effects steroid medication exposure to fluoroscopy and poor results regarding pain control. Patient understands wished to proceed. Patient supine position under sterile prep and drape bilateral knees were identified and using C-arm fluoroscopic guidance in both AP and lateral views using 22-gauge needle x3 for genicular block superior medial and superior lateral genicular nerves and inferior medial genicular nerve. Stylets were removed negative aspiration was confirmed and using 1 cc of contrast at each of the 3 injection sites showed good local spread without washout for all 3. At this time bupivacaine 0.25%(12cc total- 2 cc/site) and total of 80 mg Depo- Medrol. [place] were removed and sterile bandages were applied. Patient tolerated procedure well had no complications. ALEXANDRE CARUSO MD September 27, 2020 13:04
== END | disposition home or self-care (01) ==
LOC: PNCL 09:31
PROVIDERS: ATTEND Anesthesiology
DX: M25.561 Pain in right knee (principal); M25.562 Pain in left knee; M19.90 Unspecified osteoarthritis, unspecified site; I13.2 Hypertensive heart and chronic kidney disease with heart failure and with stage 5 chronic kidney disease, or end stage renal disease; E11.22 Type 2 diabetes mellitus with diabetic chronic kidney disease; I50.9 Heart failure, unspecified; N18.6 End stage renal disease; K21.9 Gastro-esophageal reflux disease without esophagitis; G47.33 Obstructive sleep apnea (adult) (pediatric); E66.9 Obesity, unspecified; F41.9 Anxiety disorder, unspecified; F32.9 Major depressive disorder, single episode, unspecified; Z90.49 Acquired absence of other specified parts of digestive tract; Z96.653 Presence of artificial knee joint, bilateral; Z98.890 Other specified postprocedural states; Z79.899 Other long term (current) drug therapy; Z87.442 Personal history of urinary calculi; Z72.89 Other problems related to lifestyle; Z85.828 Personal history of other malignant neoplasm of skin; Z80.8 Family history of malignant neoplasm of other organs or systems; Z91.011 Allergy to milk products; Z82.49 Family history of ischemic heart disease and other diseases of the circulatory system
CPT/HCPCS: 64454; J1040; J3490; Q9965

== ENCOUNTER → 2020-10-11 | Outpatient (CLI) | payer MEDICARE ==
[~2020-10-11] MED LIST changes: +methylPREDNISolone ACETATE 40 MG/ML VIAL. ONE
--- NOTE | 2020-10-11 10:09 | PDOC ---
Progress Note - Pain Clinic Date of Service: DOS: DATE: 10/11/20 TIME: 10:04 Diagnosis: Dx: Bilateral knee joint pain with chronic postoperative pain right total knee replacement and left partial knee replacement History or Present Illness: HPI: 60-year-old male returns for follow-up status post bilateral genicular nerve blocks with percent improvement for the first 2 to 3 days and the pain gradually returning over the next 2 to 3 days in the bilateral knees. Patient reports during those first few days he was increasing his activity with greater ease and comfort walking standing changing positions and felt very much improved. Patient reports the pain gradually returned to its baseline level where it is now patient reports a 10 on scale 10 is worse over the past week 8 on average 6 its least is 8 today with weightbearing continuous pain aching and dull severe at times in the knees again right essentially equal to left. Patient reports no new motor or sensory deficits no new changes or other deficits. Physical Exam: VS: Blood pressure is 146/85 pulse 85 respirations 20 temperature 98.1 F weight is 317 pounds PE: PHYSICAL EXAMINATION: GENERAL: The patient is awake, alert, oriented, appropriate, very pleasant demeanor HEENT: Shows normocephalic, atraumatic. Extraocular movements are intact and symmetrical. Oral cavity: Mucous membranes moist and pink. Dentition is intact. NECK: Shows anterior throat supple without palpable lymphadenopathy noted. Swallow reflex symmetrical. CHEST: Shows normal on inspection. Breath sounds are clear bilaterally, distant but no rales or rhonchi. HEART: Shows S1, S2 clear. No murmurs auscultated. ABDOMEN: Soft, nontender, nondistended, obese. No palpable organomegaly is noted. BACK: Shows spine grossly in the midline. Normal-appearing cervical lordotic curvature. There is slightly increased thoracic kyphosis, some minor flattening of the lumbar lordotic curvature. Lumbar paraspinous muscles show symmetrical on inspection, on palpation shows some moderate tenderness diffusely throughout the upper, middle and lower distribution of the paraspinous muscles, but without specific trigger points, without radiation of pain. The patient has good rotational motion of the lumbar spine, both laterally as well as extension and flexion without significant difficulty. EXTREMITIES: Lower extremities show deep tendon reflexes 1+ in the patellar and tendo calcaneus tendons. Motor exam is 5 on a scale of 5 with right dorsiflexion, extension, quadriceps and hamstring flexion and 5/5 on the left. Peripheral pulses are 1+ posterior tibial. No peripheral edema is noted bilater ally. Lower extremities are warm and dry to touch, equal in color and appearance. Knees show well-healed surgical scarring with total knee replacement on the right and partial on the left. Good range of motion without significant crepitus or ratcheting bilaterally. SKIN: Shows warm and dry, good turgor. No edema. No sores, rashes or bruising throughout. Procedure: Procedure: Options discussed with the patient. Patient chart reviews his current medication regimen updated current review of systems updated today as well. We will proceed with repeat bilateral genicular nerve blocks with fluoroscopic guidance today. Risk were discussed including but not limited to bleeding infection possibility of intravascular injection sequelae spread local anesthetic numbness side effects of steroid medication exposure to fluoroscopy and portals regarding pain control. Patient understands wished to proceed. Patient will return to clinic in approximately 2 weeks for follow-up, was couns eled return appointment activity level and side effects beware. We discussed potential radiofrequency ablation of the bilateral genicular nerves if repeat diagnostic blocks today are successful. Patient understands and is interested in pursuing this. Medication Injected: Med Injected: Patient supine position under sterile prep and drape, bilateral knees were identified and using C-arm fluoroscopic guidance in both AP and lateral views using 22-gauge needle x3 for genicular block superior medial and superior lateral genicular nerves and inferior medial genicular nerve. Stylets were removed negative aspiration was confirmed and using 1 cc of contrast at each of the 3 injection sites, per side, showed good local spread without washout for all 3, bilaterally. At this time bupivacaine 0.25%(6cc total- 2 cc/site) and total of 80 mg Depo-Medrol. [place] were removed and sterile bandages were applied. Patient tolerated procedure well had no complications. Condition at Discharge: Condition at Discharge: Condition at discharge stable, patient tolerated procedure well and had no complications. ALEXANDRE CARUSO MD October 11, 2020 10:09
--- NOTE | 2020-10-11 10:09 | PDOC4 ---
PROCEDURE Procedure Patient was consented for bilateral genicular nerve blocks. Risk were discussed including but not limited to bleeding infection possibility of intravascular injection sequelae spread local anesthetic numbness side effects steroid medications post fluoroscopy and poor results regarding pain control. Patient understands wished to proceed. Patient supine position under sterile prep and drape, bilateral knees were identified and using C-arm fluoroscopic guidance in both AP and lateral views using 22-gauge needle x3 for genicular block superior medial and superior lateral genicular nerves and inferior medial genicular nerve. Stylets were removed negative aspiration was confirmed and using 1 cc of contrast at each of the 3 injection sites, per side, showed good local spread without washout for all 3, bilaterally. At this time bupivacaine 0.25%(6cc total- 2 cc/site) and total of 80 mg Depo-Medrol. [place] were removed and sterile bandages were applied. Patient tolerated procedure well had no complications. ALEXANDRE CARUSO MD October 11, 2020 10:09
== END | disposition home or self-care (01) ==
LOC: PNCL 08:43
PROVIDERS: ATTEND Anesthesiology
DX: M25.562 Pain in left knee (principal); M25.561 Pain in right knee; G89.28 Other chronic postprocedural pain; I10 Essential (primary) hypertension; G47.30 Sleep apnea, unspecified; E66.9 Obesity, unspecified; K21.9 Gastro-esophageal reflux disease without esophagitis; M19.90 Unspecified osteoarthritis, unspecified site; F41.9 Anxiety disorder, unspecified; F32.9 Major depressive disorder, single episode, unspecified; F17.210 Nicotine dependence, cigarettes, uncomplicated; Z85.828 Personal history of other malignant neoplasm of skin; Z79.899 Other long term (current) drug therapy; Z98.890 Other specified postprocedural states; Z72.89 Other problems related to lifestyle; Z82.49 Family history of ischemic heart disease and other diseases of the circulatory system
CPT/HCPCS: 64454; J1040; J3490; Q9965; J1030

== ENCOUNTER → 2020-10-27 | Outpatient (CLI) | payer MEDICARE ==
[~2020-10-27] MED LIST changes: -IOHEXOL 180 MG/ML 10 ML VIAL. ONE; +LIDOCAINE 1% PF 2 ML VIAL. ONE; +LIDOCAINE 2% PF 5 ML VIAL. ONE
--- NOTE | 2020-10-27 15:15 | PDOC ---
Progress Note - Pain Clinic Date of Service: DOS: DATE: 10/27/20 TIME: 14:52 Diagnosis: Dx: Bilateral knee joint pain with chronic postoperative pain Bilateral joint arthroplasties total knee arthroplasty on the right and partial on the left History or Present Illness: HPI: 60-year-old male returns for follow-up status post bilateral genicular knee blocks x2 with 95% improvement after each block. Patient reports it lasted 2 to 3 days and then the pain began to return fairly gradually but over the next few days is back to baseline. Patient reports slightly more pain in the left knee to the right but present bilaterally patient reports a 9 on scale 10 is worse over the past week 7 on average/and is a 7 today patient ports aching and dull can be constant tight sharp and sometimes stabbing in the knees with weightbearing standing walking patient reports it generally does not awaken her from sleep but when he lays with his knees together it can awaken him usually from the right knee hurting at night. Patient reports no new motor or sensory deficits no new changes. Physical Exam: VS: Blood pressure is 125/86 pulse 96 respirations 16 temperature 98.1 F weight is 322 pounds PE: PHYSICAL EXAMINATION: GENERAL: The patient is awake, alert, oriented, appropriate, very pleasant demeanor HEENT: Shows normocephalic, atraumatic. Extraocular movements are intact and symmetrical. NECK: Shows anterior throat supple without palpable lymphadenopathy noted. Swallow reflex symmetrical. CHEST: Shows normal on inspection. Breath sounds are clear bilaterally. HEART: Shows S1, S2 clear. No murmurs auscultated. ABDOMEN: Soft, nontender, nondistended, obese. No palpable organomegaly is noted. BACK: Shows spine grossly in the midline. Normal-appearing cervical lordotic curvature. There is slightly increased thoracic kyphosis, some minor flattening of the lumbar lordotic curvature. EXTREMITIES: Lower extremities show deep tendon reflexes 1+ in the patellar and tendo calcaneus tendons. Motor exam is 5 on a scale of 5 with right dorsiflexion, extension, quadriceps and hamstring flexion and 5/5 on the left. Peripheral pulses are 1+ posterior tibial. No peripheral edema is noted bilaterally. Lower extremities are warm and dry to touch, well-healed surgical scarring is noted over the bilateral anterior knees. Patient shows good hinge motion of the bilateral knees without specific crepitus or ratcheting bilaterally. SKIN: Shows warm and dry, good turgor. No edema. No sores, rashes or bruising throughout. Procedure: Procedure: Options were discussed with the patient. Patient chart was reviewed his current medication regimen updated current review of systems updated today as well. We will proceed with bilateral genicular nerves radiofrequency ablation with fluoroscopic guidance. Nerves to include superior medial genicular nerve super ior lateral genicular nerves and inferior medial genicular nerves, bilaterally. Risk discussed including but not limited to bleeding infection possibility of spread of local anesthetic and numbness extravasation of local anesthetic and uptake as well as sequelae including resuscitative measures as necessary exposure fluoroscopy possible thermal damage from radiofrequency ablation of surrounding structures including motor nerves and permanent ischemic damage as well as side effects of steroid medication and poor results regarding pain control. Patient understands and wishes to proceed. Patient will return to the clinic in approximate 4 weeks for follow-up, was counseled as return appointment activity level and side effects to be aware of. Medication Injected: Med Injected: Patient supine position under sterile prep and drape bilateral knees were ligia ntified and using C-arm fluoroscopic guidance in both AP and lateral views using 22-gauge insulated radiofrequency needles x3 for each knee, genicular radiofrequency ablation of the superior medial and superior lateral genicular nerves and inferior medial genicular nerves. [place] were placed at the superior medial and superior lateral distribution along the femoral to condylar junction and the tibial condylar junction for the inferior medial genicular nerve. Stylets were removed and negative aspiration was confirmed and radiofrequency probes were placed within each of the 3 needles. At this time sensory testing was carried out up to 3 V with good reproduction of pain in each of the branches superior medial superior lateral and inferior medial genicular n erves individually. At this time motor testing was carried out up to 2 V without motor effect on the lower extremity. At this time probes were temporarily removed and 1 cc of lidocaine was injected at each of the 3 sites.Probes were replaced, and radiofrequency ablation was performed. See radiofrequency flowsheet for levels, impedances, temperatures,duration, etc. Following ablation, solution containing 1 cc 0.25% bupivacaine and 20 mg Depo- Medrol was injected at each of the injection sites.(Total of 6 cc 0.25% bupivacaine and 120 mg Depo-Medrol). [place] were removed and sterile bandages were applied. Patient tolerated procedure well and had no complications. Condition at Discharge: Condition at Discharge: Condition at discharge stable, patient already procedure well and had no complications. ALEXANDRE CARUSO MD Oct 27, 2020 15:15
--- NOTE | 2020-10-27 15:16 | PDOC4 ---
PROCEDURE Procedure Patient was consented for bilateral genicular nerve radiofrequency ablation with fluoroscopic guidance. Risk were discussed including but not limited to bleeding infection possibility of spread of local anesthetic numbness extravasation of local anesthetic and uptake with sequelae including resuscitative measures necessary, thermal damage to the surrounding structures as well as motor nerve damage with permanent ischemic damage, as well as exposure to fluoroscopy side effects steroid medication and portals regarding pain control. Patient understands wished to proceed. Patient supine position under sterile prep and drape bilateral knees were identified and using C-arm fluoroscopic guidance in both AP and lateral views using 22-gauge insulated radiofrequency needles x3 for each knee, genicular radiofrequency ablation of the superior medial and superior lateral genicular nerves and inferior medial genicular nerves. [place] were placed at the superior medial and superior lateral distribution along the femoral to condylar junction and the tibial condylar junction for the inferior medial genicular nerve. Stylets were removed and negative aspiration was confirmed and radiofrequency probes were placed within each of the 3 needles. At this time sensory testing was carried out up to 3 V with good reproduction of pain in each of the branches superior medial superior lateral and inferior medial genicular nerves individually. At this time motor testing was carried out up to 2 V without motor effect on the lower extremity. At this time probes were temporarily removed and 1 cc of lidocaine was injected at each of the 3 sites.Probes were replaced, and radiofrequency ablation was performed. See radiofrequency flowsheet for levels, impedances, temperatures,duration, etc. Following ablation, solution containing 1 cc 0.25% bupivacaine and 20 mg Depo- Medrol was injected at each of the injection sites.(Total of 6 cc 0.25% bupivacaine and 120 mg Depo-Medrol). [place] were removed and sterile bandages were applied. Patient tolerated procedure well and had no complications. ALEXANDRE CARUSO MD Oct 27, 2020 15:16
== END | disposition home or self-care (01) ==
LOC: PNCL 12:48
PROVIDERS: ATTEND Anesthesiology
DX: M25.562 Pain in left knee (principal); M25.561 Pain in right knee; G89.29 Other chronic pain; I10 Essential (primary) hypertension; G47.30 Sleep apnea, unspecified; K21.9 Gastro-esophageal reflux disease without esophagitis; E66.9 Obesity, unspecified; M19.90 Unspecified osteoarthritis, unspecified site; E11.9 Type 2 diabetes mellitus without complications; F41.9 Anxiety disorder, unspecified; F32.9 Major depressive disorder, single episode, unspecified; F17.210 Nicotine dependence, cigarettes, uncomplicated; Z85.828 Personal history of other malignant neoplasm of skin; Z72.89 Other problems related to lifestyle; Z79.899 Other long term (current) drug therapy; Z98.890 Other specified postprocedural states
CPT/HCPCS: 64624; J1030; J1040; J3490

== ENCOUNTER → 2020-11-24 | Outpatient (CLI) | payer MEDICARE ==
[~2020-11-24] MED LIST changes: -BUPIVACAINE MPF 0.25% 10 ML VIAL. ONE; -LIDOCAINE 1% PF 2 ML VIAL. ONE; -LIDOCAINE 2% PF 5 ML VIAL. ONE; -methylPREDNISolone ACETATE 40 MG/ML VIAL. ONE; -methylPREDNISolone ACETATE 80 MG/ML VIAL. ONE
--- NOTE | 2020-11-24 13:35 | PDOC ---
Progress Note - Pain Clinic Date of Service: DOS: DATE: 11/24/20 TIME: 13:29 Diagnosis: Dx: Bilateral knee joint pain with chronic postoperative pain bilateral knee joints, total knee arthroplasty right and partial left History or Present Illness: HPI: 60-year-old male returns follow-up status post bilateral genicular nerve blocks and radiofrequency ablation on October 27, 2020. Patient reports the first few days near 100% improvement but after about a week or so the pain began to return slowly but is back basically to his baseline level somewhat worse on the left than the right knee but present bilaterally patient reports is a 10 on scale 10 is worse over the past week 8 on average 4 to sleep is a 4 today patient reports aching dull constant severe with weightbearing better with sitting or laying down but still wakes him from sleep occasionally but not every night patient reports worse with standing walking weightbearing he is doing a lot of yard work over the past week or so which is seems to exacerbate the pain as well. Patient reports no new motor or sensory deficits no bowel or bladder incontinence. Patient still taking [id number] anti-inflammatories also Percocet for the pain which does help low to moderate extent. Patient reports some mild light bruising on his left knee after the injections otherwise no complications from the procedure itself. Patient reports is not currently doing any physical therapies but does use his neighbors pool to swim as much as possible and this does help his knees while he is in the pool. She reports she is attempting weight loss currently but has not had much luck thus far. Physical Exam: VS: Blood pressure is 123/80 pulse 76 respirations 16 temperature 90.0 F weight is 314 pounds PE: PHYSICAL EXAMINATION: GENERAL: The patient is awake, alert, oriented, appropriate, very pleasant in demeanor HEENT: Shows normocephalic, atraumatic. Extraocular movements are intact and symmetrical. Oral cavity: Mucous membranes moist and pink. Dentition is intact. NECK: Shows anterior throat supple without palpable lymphadenopathy noted. Swallow reflex symmetrical. CHEST: Shows normal on inspection. Breath sounds are clear bilaterally, no rales or rhonchi. HEART: Shows S1, S2 clear. No murmurs auscultated. ABDOMEN: Soft, nontender, nondistended, obese. BACK: Shows spine grossly in the midline. Normal-appearing cervical lordotic curvature. There is slightly increased thoracic kyphosis, some minor flattening of the lumbar lordotic curvature. Lumbar paraspinous muscles show symmetrical on inspection, on palpation shows some moderate tenderness diffusely throughout the upper, middle and lower distribution of the paraspinous muscles, but without specific trigger points, without radiation of pain. The patient has good rotational motion of the lumbar spine, both laterally as well as extension and flexion without significant difficulty. No tenderness over the spinous processes, sacrum or sacroiliac regions. EXTREMITIES: Lower extremities show deep tendon reflexes 1+ in the patellar and tendo calcaneus tendons. Motor exam is 5 on a scale of 5 with right dorsiflexion, extension, quadriceps and hamstring flexion and 5/5 on the left. Peripheral pulses are 1+ posterior tibial. No peripheral edema is noted bilaterally. Lower extremities are warm and dry to touch, equal in color and appearance. Patient's knees show well-healed surgical scarring over both knees with palpation shows some moderate tenderness but only diffusely mostly in the medial collateral aspect and in the medial patellar aspect. Patient's knees show good range of motion both actively and passively without ratcheting without crepitus. SKIN: Shows warm and dry, good turgor. No edema. No sores, rashes or bruising throughout. Procedure: Procedure: Options were discussed with the patient. Patient's chart was reviewed his his current medication regimen updated current review of systems updated today as well. We will recommend physical therapy with pool therapy as well as weight loss techniques and strategies as well. Patient will follow up after physical therapy is completed. Also offered dietary counseling patient would like to try this on his own first visit in the future as well if desired. Medication Injected: Med Injected: None Condition at Discharge: Condition at Discharge: Condition at discharge is stable. ALEXANDRE CARUSO MD Nov 24, 2020 13:35
== END | disposition home or self-care (01) ==
LOC: PNCL 12:47
PROVIDERS: ATTEND Anesthesiology
DX: M25.561 Pain in right knee (principal); M25.562 Pain in left knee; G89.29 Other chronic pain; I10 Essential (primary) hypertension; G47.30 Sleep apnea, unspecified; E66.9 Obesity, unspecified; K21.9 Gastro-esophageal reflux disease without esophagitis; M19.90 Unspecified osteoarthritis, unspecified site; E11.9 Type 2 diabetes mellitus without complications; F41.9 Anxiety disorder, unspecified; F32.9 Major depressive disorder, single episode, unspecified; F17.210 Nicotine dependence, cigarettes, uncomplicated; Z85.828 Personal history of other malignant neoplasm of skin; Z79.899 Other long term (current) drug therapy; Z98.890 Other specified postprocedural states; Z72.89 Other problems related to lifestyle
CPT/HCPCS: 99212; G0463

== ENCOUNTER → 2021-01-26 | Outpatient (CLI) | payer MEDICARE ==
[~2021-01-26] MED LIST changes: +CELE200C PO
--- NOTE | 2021-01-26 10:37 | PDOC ---
Progress Note - Pain Clinic Date of Service: DOS: DATE: 01/26/21 TIME: 10:32 Diagnosis: Dx: Bilateral knee joint pain with chronic postoperative pain status post total knee arthroplasty right and partial left History or Present Illness: HPI: 60-year-old male returns for follow-up status post radiofrequency ablation bilateral genicular nerves October 27, 2020 patient reports he did near 100% improvement for the first week or so but the pain returned in the bilateral knees after that time.. We discussed this on his last visit which November 24, 2020 set him up for water therapy which he did complete and has been doing it in his neighbors pool as well which is helpful patient reports while he is in the water that he has almost no pain in his knees with walking or standing patient reports once he gets out even climbing the ladder to get out of the pool the pain returns fairly quickly in both bilateral knees. Patient reports she is taking 30 mg of morphine every morning and every afternoon also 6 tablets of oxycodone 5 mg throughout the day prescribed by his primary physician. Patient reports this does not control the pain he has significant pain in the bilateral knees again with walking and some in the low back patient reports no new motor or sensory deficits no bowel or bladder incontinence provoked his pain is a 9 on scale 10 is worse over the past week 7 on average/and is a 7 today. Patient reports that he is "desperate" to get some pain relief in his knees outside of pool therapy. We had discussed weight loss techniques with him on his last visit however he has been unable to accomplish this as he is unable to walk or exercise fairly easily outside of the water secondary to the pain in his knees. Physical Exam: VS: Blood pressure is 164/95 pulse 78 respirations 18 temperature 90.8 F height 511 inches weight is 311 pounds PE: PHYSICAL EXAMINATION: GENERAL: The patient is awake, alert, oriented, appropriate, very pleasant demeanor HEENT: Shows normocephalic, atraumatic. Extraocular movements are intact and symmetrical. Oral cavity: Mucous membranes moist and pink. Dentition is intact. NECK: Shows anterior throat supple without palpable lymphadenopathy noted. Swallow reflex symmetrical. CHEST: Shows normal on inspection. Breath sounds are clear bilaterally, distant no rales rhonchi or wheezes auscultated. HEART: Shows S1, S2 clear. No murmurs auscultated. ABDOMEN: Soft, nontender, nondistended, obese. No palpable organomegaly is noted. BACK: Shows spine grossly in the midline. Normal-appearing cervical lordotic curvature. There is slightly increased thoracic kyphosis, some minor flattening of the lumbar lordotic curvature. Lumbar paraspinous muscles show symmetrical on inspection, on palpation shows some moderate tenderness diffusely throughout the upper, middle and lower distribution of the paraspinous muscles without specific trigger points, without radiation of pain. The patient has good rotational motion of the lumbar spine, both laterally as well as extension and flexion without significant difficulty. EXTREMITIES: Lower extremities show deep tendon reflexes 1 in the patellar and tendo calcaneus tendons. Motor exam is 5 on a scale of 5 with right dorsiflexion, extension, quadriceps and hamstring flexion and 5/5 on the left. Peripheral pulses are 1 posterior tibial. No peripheral edema is noted bilaterally. Lower extremities are warm and dry to touch, equal in color and appearance. Bilateral knees show surgical scarring well-healed, good range of motion without crepitus or ratcheting, moderate tenderness in the medial collateral ligament bilaterally but without radiation. No masses posteriorly no swelling bilaterally. SKIN: Shows warm and dry, good turgor. No edema. No sores, rashes or bruising throughout. Procedure: Procedure: Options were discussed with the patient. Patient chart reviews his current me dication regimen updated current review of systems updated today as well. We discussed continued pool therapy also weight loss techniques patient was unable to accomplish these very significantly at this time. Medication Injected: Med Injected: None Condition at Discharge: Condition at Discharge: Condition at discharge is stable. ALEXANDRE CARUSO MD Jan 26, 2021 10:37
== END | disposition home or self-care (01) ==
LOC: PNCL 09:12
PROVIDERS: ATTEND Anesthesiology
DX: M25.561 Pain in right knee (principal); M25.562 Pain in left knee; G89.29 Other chronic pain; Z96.653 Presence of artificial knee joint, bilateral; I10 Essential (primary) hypertension; E11.9 Type 2 diabetes mellitus without complications; G47.30 Sleep apnea, unspecified; K21.9 Gastro-esophageal reflux disease without esophagitis; F41.9 Anxiety disorder, unspecified; F32.9 Major depressive disorder, single episode, unspecified; M19.90 Unspecified osteoarthritis, unspecified site; E66.9 Obesity, unspecified; F17.210 Nicotine dependence, cigarettes, uncomplicated; Z79.899 Other long term (current) drug therapy; Z79.84 Long term (current) use of oral hypoglycemic drugs; Z98.890 Other specified postprocedural states
CPT/HCPCS: 99212; G0463

== ENCOUNTER → 2021-04-13 | Outpatient (CLI) | payer MEDICARE ==
[~2021-04-13] MED LIST changes: -CITA40TA5 PO; +CITA40TA6 PO
--- NOTE | 2021-04-19 11:17 | SLEEP ---
DATE OF STUDY: 04/13/2021 SLEEP STUDY ATTENDING PHYSICIAN: Tasneem oJshua MD. The patient is a 61-year-old who weighs 306 pounds with a BMI of 43. The patient's [place] score was 1. The patient underwent split night study performed at [facility]. During the night study, the patient spent 513 minutes in bed and slept for 472 minutes with a sleep efficiency of 92%. Sleep latency was 17 minutes with a REM latency of 271 minutes. Sleep architecture showed normal stage 1 sleep, increased stage 2 sleep, absent slow wave and reduced REM sleep. During the initial diagnostic portion of the study, the patient slept for 121 minutes. During that time, the patient had 56 obstructive apneas, no central or mixed apneas and 98 hypopneas. The patient's AHI was 76 per hour with no supine or REM sleep during the diagnostic portion. EKG monitoring revealed no arrhythmias. PLMs were seen at index of 4 per hour and 1 per hour caused EEG arousals. Nocturnal oximetry study revealed an average oxygen saturation of 86% with a lowest of 75%. 95% of the time, oxygen saturation remained between 80% and 89%. The patient was started on CPAP at 5 cm water and titrated up to 11 cm water. At the final pressure, the patient slept for 351 minutes. The patient's AHI was reduced to 0 per hour. The patient's oxygen saturation remained above 88% most of the time with one spot desaturation of 78%. The patient had supine as well as REM sleep. IMPRESSION: 1. Severe obstructive sleep apnea at an AHI of 76 per hour. 2. Nocturnal hypoxia secondary to obstructive sleep apnea, but resolved with CPAP. 3. No significant periodic limb movements. RECOMMENDATIONS: 1. CPAP at 11 cm water completely eliminated the patient's sleep apnea and should be used on a nightly basis. The patient used medium-sized nasal pillows. 2. Follow up in 4-6 weeks to assess compliance and to document clinical improvement. 3. Weight loss is strongly advised. 4. Avoid BLANKET WASHER depressants. 5. Cautioned regarding driving until symptoms of sleep apnea resolve with the use of CPAP. SHARAN/RAJI DR: [place] TID: [id number] CC: TASNEEM JOSHUA MD
== END ==
LOC: SLPLAB 19:22
PROVIDERS: ATTEND Family Medicine
DX: G47.33 Obstructive sleep apnea (adult) (pediatric) (principal); G47.34 Idiopathic sleep related nonobstructive alveolar hypoventilation
CPT/HCPCS: 95810

== ENCOUNTER → 2021-04-28 | Outpatient (CLI) | payer MEDICARE ==
[~2021-04-28] MED LIST changes: +BUPIVACAINE MPF 0.25% 10 ML VIAL. ONE; +LIDOCAINE 2% PF 5 ML VIAL. ONE; +methylPREDNISolone ACETATE 40 MG/ML VIAL. ONE; +methylPREDNISolone ACETATE 80 MG/ML VIAL. ONE
--- NOTE | 2021-04-28 12:48 | PDOC4 ---
Procedure Note: ICD 10 Code: ICD 10 Code: M2 5.563 M1 7.13 Procedure Note: Patient was consented for bilateral genicular radiofrequency ablation with fluoroscopic guidance. Risks discussed including but not limited to bleeding infection possibility of vascular injection sequelae thermal damage to surrounding structures as well as permanent damage to motor nerves as well as poor results regarding pain control. Patient understands wished to proceed. Patient supine position under sterile prep and drape bilateral knees were identified and using C-arm fluoroscopic guidance in both AP and lateral views using 22-gauge insulated radiofrequency needles x3 for each knee, genicular radiofrequency ablation of the superior medial and superior lateral genicular nerves and inferior medial genicular nerves. [place] were placed at the superior medial and superior lateral distribution along the femoral to condylar junction and the tibial condylar junction for the inferior medial genicular nerve. Stylets were removed and negative aspiration was confirmed and radiofrequency probes were placed within each of the 3 needles. At this time sensory testing was carried out up to 3 V with good reproduction of pain in each of the branches superior medial superior lateral and inferior medial genicular nerves individually. At this time motor testing was carried out up to 2 V without motor effect on the lower extremity. At this time probes were temporarily removed and 1 cc of lidocaine was injected at each of the 3 sites.Probes were replaced, and radiofrequency ablation was performed. See radiofrequency flowsheet for levels, impedances, temperatures,duration, etc. Following ablation, solution containing 1 cc 0.25% bupivacaine and 20 mg Depo- Medrol was injected at each of the injection sites.(Total of 6 cc 0.25% bupivacaine and 120 mg Depo-Medrol). [place] were removed and sterile bandages were applied. Patient tolerated procedure well and had no complications. ALEXANDRE CARUSO MD Apr 28, 2021 12:47
--- NOTE | 2021-04-28 12:52 | PDOC ---
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 Patient reports much better when he is of his feet, but weightbearing standing walking stairs steps etc. exacerbates the pain significantly which limits his daily activities severely. Patient rates pain is a 10 on scale 10 is worst 8 on average 3 at its least is an 8 today patient comes as dull burning constant with weightbearing in the bilateral knees right essentially equal to left. 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 Physical Exam: VS: Blood pressure is 142/81 pulse 73 respirations 20 temperature 98.2 F weight is 308 pounds PE: PHYSICAL EXAMINATION: GENERAL: The patient is awake, alert, oriented, appropriate, very pleasant in demeanor HEENT: Shows normocephalic, atraumatic. Extraocular movements are intact and symmetrical. Oral cavity: Mucous membranes moist and pink. Dentition is intact. NECK: Shows anterior throat supple without palpable lymphadenopathy noted. Swallow reflex symmetrical. CHEST: Shows normal on inspection. Breath sounds are clear bilaterally, distant but no rales or rhonchi. HEART: Shows S1, S2 clear. No murmurs auscultated. ABDOMEN: Soft, nontender, nondistended, obese. No palpable organomegaly is noted. BACK: Shows spine grossly in the midline. Normal-appearing cervical lordotic curvature. There is slightly increased thoracic kyphosis, some minor flattening of the lumbar lordotic curvature. EXTREMITIES: Lower extremities show deep tendon reflexes 1 in the patellar and tendo calcaneus tendons. Motor exam is 5 on a scale of 5 with right dorsiflexion, extension, quadriceps and hamstring flexion and 5/5 on the left. Peripheral pulses are 1 posterior tibial. No peripheral edema is noted bilaterally. Lower extremities are warm and dry to touch, equal in color and appearance. Patient's knees show well-healed surgical scarring over both knees motion of the knee shows good range of motion without specific ratcheting or crepitus. SKIN: Shows warm and dry, good turgor. No edema. No sores, rashes or bruising throughout. Procedure: Procedure: Options discussed with the patient. Patient's old chart was reviewed, as was his current medication regimen reviewed today. We will proceed with bilateral genicular radiofrequency ablation with fluoroscopic guidance. Risk were discussed including but not limited to bleeding infection possibility of local anesthetic injection spread with numbness as well as possible thermal damage to the surrounding nerves and motor nerves with permanent ischemic damage. Patient understands wishes to proceed. Patient will return to clinic in approximately 3 weeks for follow-up, was counseled as return appointment, activity level, and side effect to be aware of. Medication Injected: Med Injected: Patient supine position under sterile prep and drape bilateral knees were identified and using C-arm fluoroscopic guidance in both AP and lateral views using 22-gauge insulated radiofrequency needles x3 for each knee, genicular radiofrequency ablation of the superior medial and superior lateral genicular nerves and inferior medial genicular nerves. [place] were placed at the superi or medial and superior lateral distribution along the femoral to condylar junction and the tibial condylar junction for the inferior medial genicular nerve. Stylets were removed and negative aspiration was confirmed and radiofrequency probes were placed within each of the 3 needles. At this time sensory testing was carried out up to 3 V with good reproduction of pain in each of the branches superior medial superior lateral and inferior medial genicular nerves individually. At this time motor testing was carried out up to 2 V without motor effect on the lower extremity. At this time probes were temporarily removed and 1 cc of lidocaine was injected at each of the 3 sites.Probes were replaced, and radiofrequency ablation was performed. See radiofrequency flowsheet for levels, impedances, temperatures,duration, etc. Following ablation, solution containing 1 cc 0.25% bupivacaine and 20 mg Depo- Medrol was injected at each of the injection sites.(Total of 6 cc 0.25% bupivacaine and 120 mg Depo-Medrol). [place] were removed and sterile bandages were applied. Patient tolerated procedure well and had no complications. Condition at Discharge: Condition at Discharge: Condition at discharge is stable, patient tolerated the procedure well and had no complications. ALEXANDRE CARUSO MD Apr 28, 2021 12:52
== END | disposition home or self-care (01) ==
LOC: PNCL 10:51
PROVIDERS: ATTEND Anesthesiology
DX: M25.561 Pain in right knee (principal); M25.562 Pain in left knee; M17.0 Bilateral primary osteoarthritis of knee; G89.29 Other chronic pain; I10 Essential (primary) hypertension; G47.30 Sleep apnea, unspecified; E66.9 Obesity, unspecified; K21.9 Gastro-esophageal reflux disease without esophagitis; E11.9 Type 2 diabetes mellitus without complications; F41.9 Anxiety disorder, unspecified; F32.9 Major depressive disorder, single episode, unspecified; F17.210 Nicotine dependence, cigarettes, uncomplicated; Z85.828 Personal history of other malignant neoplasm of skin; Z79.899 Other long term (current) drug therapy; Z98.890 Other specified postprocedural states; Z72.89 Other problems related to lifestyle
CPT/HCPCS: 64624; J1030; J1040; J3490; 64454